=== PATIENT | male | born 1960 | race Asian ===

== ENCOUNTER → 2021-10-08 08:54 | Outpatient (CLI) | payer BC, SELFPAY ==
[2021-10-08 12:06] LABS: COVID19 -Nasal RAPID Negative (Negative)
== END ==
PROVIDERS: PCP Family Medicine; Visit Provider Surgery
DX: Z01.812 Encounter for preprocedural laboratory examination (principal); Z20.822 Contact with and (suspected) exposure to COVID-19
CPT/HCPCS: 87635; C9803

== ENCOUNTER 2021-10-09 06:22 | Day surgery (SDC) | payer BC, SELFPAY ==
[2021-10-09] VITALS (7 sets, daily range): BP systolic 96–156; BP diastolic 69–86; PULSE 70–94; RESP 12–20; TEMP 36.9; O2SAT 94–98; BMI 30.7
--- NOTE | 2021-10-09 | PATH_ITS ---
[facility] Accession Number: [id number] . 01 Material submitted: . colon - ASCENDING POLYP . 02 Diagnosis: Ascending Colon Polyp, Biopsy: Tubular adenoma. MRV 10/13/2021 1529 Local . 02 Electronically signed: . Jayden Mckeon MD, PhD, Pathologist NPI- [id number] . 01 Gross description: . ASCENDING POLYP: Received in formalin is 1 fragment(s) of marsh, soft tissue measuring 0.3 x 0.3 x 0.2 cm submitted entirely in 1 cassette(s) /CPE 10/10/2021 0831 Local . 02 Pathologist provided ICD-10: D12.2 . 02 CPT . 856915 Specimen Comment: A courtesy copy of this report has been sent to [phone] Performed at: 01 [facility] [address] [id number] MD Yonathan Bowles MD Phone: [phone] Performed at: 02 [facility] [address] [place], [place] [id number] MD Macey Robins MD Phone: [phone]
[2021-10-09] MEDS: LACTATED RINGERS 1,000 ML 200 ML IV (07:34)
--- NOTE | 2021-10-09 07:38 | PM.HP.1 ---
History of Present Illness History of Present Illness Date Patient Seen: 10/09/21 Time Patient Seen: 07:38 Chief complaint: SDC Narrative: 61-year-old man who has never had a colonoscopy before was here for colon cancer screening. No rectal bleeding or melena. See office note from July for details. Patient History Medical History Asthma Hyperlipemia Hypertension Low back pain Muscle strain Myalgia Pruritus Type 2 diabetes mellitus Family & Social History Social History: household members spouse Tobacco & Substance use: Smoking Status Never smoker alcohol intake never Substance Use Type does not use Meds Home Medications and Allergies Home Medications Medication Instructions Recorded Confirmed Type albuterol sulfate 90 mcg/actuation 2 puff INHALATION Q6H 08/22/21 10/09/21 History aerosol inhaler (ProAir HFA) lisinopril 10 mg tablet 10 mg PO DAILY 08/22/21 10/09/21 History lovastatin 40 mg tablet 40 mg PO DAILY 08/22/21 10/09/21 History metformin 1,000 mg tablet 1,000 mg PO BID 08/22/21 10/09/21 History pantoprazole 20 mg tablet,delayed 20 mg PO DAILY 08/22/21 10/09/21 History release Allergies Allergy/AdvReac Type Severity Reaction Status Date / Time Penicillins Allergy Unknown Verified 10/09/21 07:08 Exam Vital Signs (past 8 hours): - 10/09/21 07:19 Temperature 98.5 F Pulse Rate 94 H Respiratory Rate 20 Blood Pressure 156/86 H Pulse Oximetry 97 Oxygen Delivery Method Room Air Const General: healthy appearing Resp Effort & Inspection: normal respiratory effort GI Palpation: soft Assessment & Plan Assessment and plan (1) Colon cancer screening: Status: Acute Plan Risks and benefits of colonoscopy reviewed. He would like to proceed. COVID-19 COVID-19 status: Negative Result date/Date tested (Pos, Neg/Pending): 10/08/21 Time Spent With Patient Critical Care time: I spent a total of [] minutes of critical care time on this patient's care today; this time is exclusive of procedural time.
[2021-10-09] MEDS: MIDAZOLAM 5 MG/5 ML VIAL IV (08:05)
[2021-10-09] MEDS: fentaNYL 250 MCG/5 ML INJ IV (08:09)
--- NOTE | 2021-10-09 08:15 | PM.OP.COLON ---
Operative Date/Time/Diagnoses Date of procedure: 10/09/21 Time of procedure: 08:15 Pre-op diagnosis: Colon cancer screening Post-op diagnosis: same Procedure & Clinicians Study performed: Colonoscopy Same procedure as scheduled: Yes Surgeon: Jose Alfredo Franklin Procedure Notes SCOAP/Timeout: Performed Procedure in detail: Procedure: The patient was brought to the endoscopy suite, placed in left lateral decubitus position. The patient was connected to monitoring devices. A time-out was performed. Sedation was administered. Once the patient was adequately sedated, a digital rectal exam was performed and was normal. The scope was then inserted and advanced to the cecum where the appendiceal orifice was identified and photographed. The scope was then slowly withdrawn over greater than 6 minutes. Mucosa was thoroughly inspected. There was a small polyp in the ascending colon removed with a cold forceps. The scope was retroflexed in the rectum. No abnormalities were noted. The scope was straightened and removed. The patient was awakened and brought to recovery. Versed: 6 mg Fentanyl: 125 mcg EBL: 1 mL Findings: 1 small ascending colon polyp roughly 4 mm Scope withdrawal time: 11 Sedation minutes: 23 Post-procedure Recommendations: Will call with biopsy results Disposition: PACU
== END 2021-10-09 08:58 | disposition home or self-care (01) ==
PROVIDERS: PCP Family Medicine; Referring Provider Surgery; Visit Provider Surgery
PROC: 0DJD8ZZ Inspection of Lower Intestinal Tract, Via Natural or Artificial Opening Endoscopic (ICD-10-PCS; CPT 45378; principal; 2021-10-09 07:45)
DX: Z12.11 Encounter for screening for malignant neoplasm of colon (principal); E11.9 Type 2 diabetes mellitus without complications; I10 Essential (primary) hypertension; Z79.84 Long term (current) use of oral hypoglycemic drugs; D12.2 Benign neoplasm of ascending colon
CPT/HCPCS: 45380; 99152; J2250; J3010